=== PATIENT | female | born 1990 | race Caucasian/White ===

== ENCOUNTER 2024-04-07 08:37 | Emergency (ER) | payer OTHER, SELFPAY ==
[2024-04-07 08:42] VITALS: BP 124/88
--- NOTE | 2024-04-07 10:07 | ED.GENMED ---
History of Present Illness
<Karly Ramey MD, Resident - Last Filed: 04/07/24 11:37>
General
Chief Complaint: Throat Problem
Source: patient
Exam Limitations: none
Time Seen by Provider: 04/07/24 09:24
History of Present Illness
History of Present Illness:
34 yr old F with no significant past medical history who presents to the ED for foreign body stuck in throat. She reports that she ate some tacos last night and got a piece of tortilla chip stuck in her throat. She was able to go to sleep last night
but was woken by sharp sensation in throat. One mild episode of nausea that resolved without treatment. Does not have difficulty swallowing at this time, but sensation remains. Denies recent illness, dysphagia, fever/chills or cough.
Past History
<Karly Ramey MD, Resident - Last Filed: 04/07/24 11:37>
Past History
ED Past Medical History: None
ED Past Surgical History: Tonsilectomy
Patient has exhibited threatening behavior?: No
Social History
Tobacco: Non-smoker
Alcohol: Occasional
Drug: None
Review of Systems
<Karly Ramey MD, Resident - Last Filed: 04/07/24 11:37>
Review of Systems
Constitutional: Denies fever or chills
EENT: Reports other (sensation of item in troat)
Respiratory: Denies cough or trouble breathing
ABD/GI: Reports nausea
Phy Exam
<Karly Ramey MD, Resident - Last Filed: 04/07/24 11:37>
General Physical Exam
General Presentation: well appearing and no apparent distress
General age: appears stated age
General Skin: warm and dry
General Habitus: normal
ENT Exam
ENT Exam: pharynx normal, neck supple and other (no lymphadenopathy)
Cardiovascular Exam
Cardiovascular Exam: regular rate/rhythm, no edema and no murmur
Pulmonary Exam
Pulmonary Exam: lungs clear, no respiratory distress, no rales, no crackles, no rhonchi and no wheezing
Cough: no cough
Gastrointestinal Exam
Gastrointestinal Exam: non tender, soft, non distended and no cva tenderness
Course
<Karly Ramey MD, Resident - Last Filed: 04/07/24 11:37>
Vital Signs
Initial and Last Documented VS:
Initial Vital Signs
Temp Pulse Resp BP Pulse Ox
98.7 F 63 18 124/88 100
04/07/24 08:42 04/07/24 08:42 04/07/24 08:42 04/07/24 08:42 04/07/24 08:42
Last Documented Vital Signs
Temp Pulse Resp BP Pulse Ox
98.7 F 88 20 127/76 99
04/07/24 08:42 04/07/24 11:00 04/07/24 11:00 04/07/24 11:00 04/07/24 11:00
<Lamont Flores MD - Last Filed: 04/07/24 11:24>
Vital Signs
Initial and Last Documented VS:
Initial Vital Signs
Temp Pulse Resp BP Pulse Ox
98.7 F 63 18 124/88 100
04/07/24 08:42 04/07/24 08:42 04/07/24 08:42 04/07/24 08:42 04/07/24 08:42
Last Documented Vital Signs
Temp Pulse Resp BP Pulse Ox
98.7 F 88 20 127/76 99
04/07/24 08:42 04/07/24 11:00 04/07/24 11:00 04/07/24 11:00 04/07/24 11:00
<Karly Ramey MD, Resident - Last Filed: 04/07/24 11:37>
MDM/Problems Addressed
Differential Diagnosis Includes:
foreign body impaction in larynx, esophageal abrasion.
MDM/Problems Addressed:
Given known onset (at dinner), improvement of symptoms, including nausea, and sharp sensation in throat, absence of dysphagia, with benign physical exam, unlikely food bolus. pt can be discharged home. Pt is instructed to eat soft foods and PPI was
prescribed. An endoscopy is not indicated at this time.
<Lamont Flores MD - Last Filed: 04/07/24 11:24>
*Pulse Oximetry
Patient hypoxic: no
*Critical Care Note
Total Time (30-74mins, 75-104mins- exclusive of procedures): Not Applicable
ED Attending Note
<Karly Ramey MD, Resident - Last Filed: 04/07/24 11:37>
-
Portions of this chart may have been created with voice recognition software.� Occasional wrong word or��sound alike� substitutions may have occurred due to the inherent limitations of voice recognition software.
<Lamont Flores MD - Last Filed: 04/07/24 11:24>
ED Attending Note
Patient seen and examined by attending physician: Yes
I performed a history and physical exam of patient and discussed management with resident, I reviewed resident's note and agree with documented findings and plan of care.: Yes
ED Attending Note:
I have seen and evaluated the patient with a [id number] encounter. I have spoken to the resident and involved in the medical history, the physical exam, medical decision making.
Evaluation and management service: agree unless noted differently below.
Results interpretation: agree unless noted differently below.
Focused HPI: 34-year-old female with no significant chronic medical issues presents for evaluation of foreign body sensation in the esophagus. Patient says that she was eating tortilla chips last night and she felt like a sharp piece got stuck just
below her voicebox. She says that she was not having any significant pain and was able to swallow liquids without difficulty. She was able to get to sleep. This morning she said that while she was lying flat she felt a sharper pain in the throat
and was concerned that there was still a piece of food stuck and so she came to the ER. She denies any vomiting. She says that she has no pain at present. She denies any other complaints.
Physical exam: Awake alert no distress. Handling secretions. Vital signs normal. She has no erythema in the posterior oropharynx, no tongue elevation. She has no lymphadenopathy, no mass or tenderness in the neck.
Medical Decision Makin-year-old female presents with sensation of something stuck in her throat. She is able to swallow without difficulty. She is have some pain last night has improved. Suspect likely esophageal mucosal tear, low suspicion
for esophageal foreign body with patient tolerating secretions and p.o. intake without difficulty. Will plan to start on PPI. Advised to return with vomiting/nausea, worsening pain. All questions answered.
Discharge Plan
Departure
Patient Disposition: Home (Routine Discharge)
Date of Disposition: 04/07/24
Time of Disposition: 10:41
Patient with high blood pressure during this ER visit?: No
Discharge Problem:
Mucosal tear of esophagus
Instructions: Esophagitis
Prescriptions:
New
pantoprazole [Protonix] 40 mg tablet,delayed release (DR/EC)
40 mg PO DAILY Qty: 30 0RF
Referrals:
Suresh Sheridan DO [Family Provider] - Follow up in 2-3 days
Activity Restrictions/Additional Instructions:
Thank you for visiting the Emergency Department at [facility].
1. Please schedule a follow up appointment as directed. Call first thing tomorrow morning to make an appointment.
2. If indicated, please take your medications as instructed and indicated on discharge paperwork.
3. If any of your symptoms do not improve, or persist, or become more severe within 6-12 hours, please return to the emergency department for further care.
4. Please return to the emergency department if you develop a headache, neck pain/stiffness, fever greater than 100.4F, chest pain, shortness of breath, persistent nausea, vomiting, slurred speech, difficulty walking, numbness/tingling, weakness,
signs of infection or any other symptoms that are worrisome to you.
Please call [phone] if you have any questions.
Interventions
Interventions:
*Risk Screen - Suicide Last Done: 04/07/24 08:42
*General Assessment Last Done: 04/07/24 08:42
*Neglect/Abuse Screening Last Done: 04/07/24 08:42
*Nursing Disposition Last Done: 04/07/24 11:05
ED-EENT Assessment Last Done: 04/07/24 10:30
ED- Pulmonary Assessment Last Done: 04/07/24 10:30
Discharge Date and Time
Discharge Date/Time: 04/07/24 11:06
Print Language: CHINESE
[2024-04-07 11:00] VITALS: BP 127/76
== END 2024-04-07 11:06 | disposition home or self-care (01) ==
LOC: EMR 08:37
PROVIDERS: EMERGENCY PHYSICIAN Emergency Medicine; FAMILY PHYSICIAN Family Medicine
DX: K20.90 Esophagitis, unspecified without bleeding (principal)
CPT/HCPCS: 99282